=== PATIENT | male | born 1965 | race Caucasian/White ===

== ENCOUNTER 2025-04-04 11:26 | Inpatient (IN) | payer MEDICAID, OTHER ==
[~2025-04-04] VITALS: Ht 175.3 cm; Wt 84.8 kg
[2025-04-04 13:43] LABS: PLATELET COUNT (AUTO) 410 K/uL (150-450); RED BLOOD CELL COUNT(AUTO) 5.37 MIL/uL (4.50-5.90); RED CELL DISTRIBUTION WIDTH 13.8 % (11.5-14.5); WHITE BLOOD COUNT (AUTO) 7.4 K/uL (4.5-11.0)
[2025-04-04 13:48] LABS: PH,URINE DRUG SCREEN 7.0 (5.0-8.0)
[2025-04-04 13:53] LABS: CALCIUM, TOTAL 9.4 mg/dL (8.8-10.5); CREATININE 1.07 mg/dL (0.60-1.30); GLOMERULAR FILTR. RATE CALC > 60 mL/min (>60); GLUCOSE,RANDOM 137 mg/dL (70-110); SODIUM SERUM 136 mmol/L (136-145); UREA NITROGEN, BLOOD 11 mg/dL (7-18)
[2025-04-04 13:54] LABS: ALCOHOL, URINE DRUG SCREEN NEGATIVE (NEGATIVE); AMPHET/METH SCREEN,URINE NEGATIVE (NEGATIVE); BARBITURATE SCREEN, URINE NEGATIVE (NEGATIVE); CANNABINOID SCREEN,URINE NEGATIVE (NEGATIVE); COCAINE SCREEN,URINE NEGATIVE (NEGATIVE); METHADONE SCREEN, URINE NEGATIVE (NEGATIVE)
[2025-04-04 14:29] LABS: COVID AG,FIA SOURCE NASAL SWAB
[2025-04-04 15:14] LABS: SARS-COV2 (COVID) ANTIGEN,FIA Negative (Negative)
[2025-04-04] MEDS ORDERED: ZOLPIDEM TARTRATE 10 MG TABLET PO PRN (16:30)
[2025-04-04 23:55] VITALS: O2SAT 96
[2025-04-05 04:33] VITALS: BP 108/80; PULSE 123; RESP 17; TEMP 97.3; O2SAT 96
[2025-04-05 06:55] LABS: GLUCOMETER DEV NAME(LOC) BV3S.2; GLUCOSE,POINT OF CARE 160 MG/DL (70-110)
[2025-04-05] MEDS ORDERED: PETROLATUM,WHITE 28 GM JELLY TP PRN (07:00)
[2025-04-05] MEDS: POTASSIUM CHLORIDE 20 MEQ ER TABLET PO ONE (07:00)
[2025-04-05] MEDS ORDERED: ONDANSETRON 4 MG TABLET PO PRN (07:00)
[2025-04-05] MEDS ORDERED: MAGNESIUM HYDROXIDE SUSPENSION 30 ML UDCUP PO PRN (07:00)
[2025-04-05] MEDS ORDERED: IBUPROFEN 600 MG TABLET PO PRN (07:00)
[2025-04-05] MEDS ORDERED: ALBUTEROL SULFATE HFA 90 MCG/PUFF 8 GM INHALER IH PRN (07:00)
[2025-04-05] MEDS ORDERED: OMEPRAZOLE 20 MG CAPSULE PO PRN (07:00)
[2025-04-05] MEDS ORDERED: BENZOCAINE/MENTHOL [CEPACOL] LOZENGE PO PRN (07:00)
[2025-04-05] MEDS ORDERED: GLUCAGON,HUMAN RECOMBINANT 1 MG VIAL IM PRN (07:00)
[2025-04-05] MEDS ORDERED: BACITRACIN 28 GM OINTMENT TP PRN (07:00)
[2025-04-05] MEDS ORDERED: DOCUSATE SODIUM 100 MG CAPSULE PO PRN (07:00)
[2025-04-05] MEDS ORDERED: LOPERAMIDE HCL 2 MG CAPSULE PO PRN (07:00)
[2025-04-05] MEDS ORDERED: ACETAMINOPHEN 325 MG TABLET PO PRN (07:00)
[2025-04-05] MEDS ORDERED: INSULIN LISPRO 100 UNITS/ML SQ PRN (07:00)
[2025-04-05] MEDS ORDERED: MAG HYDROX/ALUMINUM HYD/SIMETH ES 30 ML SUSPENSION UDCUP PO PRN (07:00)
[2025-04-05 08:45] VITALS: BP 101/75; PULSE 100; RESP 16; TEMP 97.3; O2SAT 98
[2025-04-05] MEDS: METOPROLOL TARTRATE 25 MG TABLET PO SCH (09:00)
[2025-04-05 09:56] LABS: CHOL/HDL RATIO 1.9 (4.2-7.3); LDL CHOL (CALC.) 42.0 mg/dL (0-130)
[2025-04-05] MEDS ORDERED: LURASIDONE HCL 40 MG TABLET PO PRN (15:00)
[2025-04-05] MEDS: TRIHEXYPHENIDYL HCL 5 MG TABLET PO SCH (18:30)
[2025-04-05 20:30] VITALS: RESP 16
[2025-04-06] MEDS: LURASIDONE HCL 40 MG TABLET PO SCH (06:34)
[2025-04-06 08:21] VITALS: BP 114/76; PULSE 79; RESP 17; TEMP 98; O2SAT 98
[2025-04-06 20:43] VITALS: BP 148/83; PULSE 95; RESP 19; TEMP 97.2; O2SAT 97
[2025-04-07 09:13] VITALS: BP 133/93; PULSE 88; RESP 18; TEMP 97.3; O2SAT 98
[2025-04-07] MEDS ORDERED: POTASSIUM CHLORIDE 10% 40 MEQ/30 ML LIQUID UDCUP PO ONE (10:45)
[2025-04-07 20:26] VITALS: BP 132/83; PULSE 68; RESP 18; TEMP 98; O2SAT 98
[2025-04-08 08:44] VITALS: BP 151/81; PULSE 68; RESP 18; TEMP 97.4; O2SAT 99
[2025-04-08] MEDS ORDERED: OLANZapine 5 MG RAPDIS TABLET PO PRN (14:45)
[2025-04-08 16:30] VITALS: BP 121/93; PULSE 66; RESP 18; TEMP 97.3; O2SAT 100
[2025-04-08 20:22] VITALS: BP 121/93; PULSE 66; RESP 18; TEMP 97.3; O2SAT 100
[2025-04-08] MEDS: OLANZapine 5 MG RAPDIS TABLET PO SCH (21:00)
[2025-04-09 08:58] VITALS: BP 137/85; PULSE 87; RESP 17; TEMP 97.9; O2SAT 98
[2025-04-09] MEDS: DIVALPROEX SODIUM 500 MG ER TABLET PO SCH (17:00)
[2025-04-09 20:44] VITALS: RESP 17
[2025-04-09] MEDS: OLANZapine 10 MG RAPDIS TABLET PO SCH (20:52)
[2025-04-09 22:40] LABS: GLUCOMETER DEV NAME(LOC) BV2S.; GLUCOSE,POINT OF CARE 109 MG/DL (70-110)
[2025-04-09 22:40] LABS: GLUCOMETER DEV NAME(LOC) BV2S.; GLUCOSE,POINT OF CARE 79 MG/DL (70-110)
[2025-04-09 22:40] LABS: GLUCOMETER DEV NAME(LOC) BV2S.; GLUCOSE,POINT OF CARE 116 MG/DL (70-110)
[2025-04-09 22:40] LABS: GLUCOMETER DEV NAME(LOC) BV2S.; GLUCOSE,POINT OF CARE 105 MG/DL (70-110)
[2025-04-10 09:31] VITALS: RESP 18
[2025-04-10] MEDS ORDERED: PALIPERIDONE PALMITATE 234 MG/1.5 ML SYRINGE IM ONE (16:00)
[2025-04-10 20:16] VITALS: RESP 16
[2025-04-11 06:26] LABS: GLUCOMETER DEV NAME(LOC) BV2S.; GLUCOSE,POINT OF CARE 84 MG/DL (70-110)
[2025-04-11 06:26] LABS: GLUCOMETER DEV NAME(LOC) BV2S.; GLUCOSE,POINT OF CARE 62 MG/DL (70-110)
[2025-04-11 06:55] LABS: GLUCOMETER DEV NAME(LOC) BV2S.; GLUCOSE,POINT OF CARE 83 MG/DL (70-110)
[2025-04-11 08:19] VITALS: BP 148/88; PULSE 68; RESP 18; TEMP 98.4; O2SAT 100
[2025-04-11] MEDS ORDERED: FLUP25VI5 IM (16:21)
[2025-04-11] MEDS ORDERED: OLAN10TA26 PO (16:21)
[2025-04-11] MEDS ORDERED: TRIH5TAB3 PO (16:21)
[2025-04-11] MEDS ORDERED: DIVA-153 PO (16:21)
[2025-04-11 20:27] VITALS: BP 106/90; PULSE 86; RESP 18; TEMP 97.7; O2SAT 96
[2025-04-12 08:17] VITALS: BP 148/91; PULSE 69; RESP 18; TEMP 97.2; O2SAT 100
[2025-04-12 16:27] VITALS: BP 133/81; PULSE 77; RESP 18; TEMP 97.8; O2SAT 99
[2025-04-12 20:28] VITALS: RESP 18
[2025-04-12 22:11] LABS: GLUCOMETER DEV NAME(LOC) BV2S.; GLUCOSE,POINT OF CARE 100 MG/DL (70-110)
[2025-04-12 22:11] LABS: GLUCOMETER DEV NAME(LOC) BV2S.; GLUCOSE,POINT OF CARE 93 MG/DL (70-110)
[2025-04-12 22:11] LABS: GLUCOMETER DEV NAME(LOC) BV2S.; GLUCOSE,POINT OF CARE 71 MG/DL (70-110)
[2025-04-12 22:11] LABS: GLUCOMETER DEV NAME(LOC) BV2S.; GLUCOSE,POINT OF CARE 107 MG/DL (70-110)
[2025-04-12 22:11] LABS: GLUCOMETER DEV NAME(LOC) BV2S.; GLUCOSE,POINT OF CARE 99 MG/DL (70-110)
[2025-04-13 06:51] LABS: GLUCOMETER DEV NAME(LOC) BV2S.; GLUCOSE,POINT OF CARE 99 MG/DL (70-110)
[2025-04-13 18:43] VITALS: BP 114/70; PULSE 88; RESP 14; TEMP 97.8; O2SAT 97
[2025-04-13 20:13] VITALS: RESP 16
[2025-04-14 08:08] VITALS: BP 137/86; PULSE 88; RESP 18; TEMP 97.7; O2SAT 98
[2025-04-14] MEDS ORDERED: PALIPERIDONE PALMITATE 156 MG/ML SYRINGE IM ONE (09:00)
[2025-04-14 20:25] VITALS: BP 146/88; PULSE 66; RESP 16; TEMP 98.2; O2SAT 98
[2025-04-14 23:40] LABS: GLUCOMETER DEV NAME(LOC) BV2S.; GLUCOSE,POINT OF CARE 78 MG/DL (70-110)
[2025-04-14 23:40] LABS: GLUCOMETER DEV NAME(LOC) BV2S.; GLUCOSE,POINT OF CARE 104 MG/DL (70-110)
[2025-04-15 20:47] VITALS: BP 113/61; PULSE 78; RESP 17; TEMP 97.9; O2SAT 98
[2025-04-16] MEDS ORDERED: METO25 PO (08:23)
[2025-04-16] MEDS ORDERED: TRIH5TAB3 PO (10:18)
[2025-04-16] MEDS ORDERED: OLAN10TA26 PO (10:18)
[2025-04-16] MEDS ORDERED: DIVA-153 PO (10:18)
[2025-04-16] MEDS ORDERED: FLUP25VI5 IM (10:18)
[2025-04-16 15:21] VITALS: RESP 16
== END 2025-04-16 13:05 | DRG 761 ==
LOC: EMS 11:26 → B3A 21:57
PROVIDERS: ADMIT Psychiatry & Neurology Psychiatry; ATTEND Psychiatry & Neurology Psychiatry
PROC: GZHZZZZ Group Psychotherapy (ICD-10-PCS; principal; 2025-04-05)
PROC: GZ58ZZZ Individual Psychotherapy, Cognitive-Behavioral (ICD-10-PCS; 2025-04-05)
PROC: GZ56ZZZ Individual Psychotherapy, Supportive (ICD-10-PCS; 2025-04-08)
DX: F25.9 Schizoaffective disorder, unspecified (principal); D64.9 Anemia, unspecified; E11.9 Type 2 diabetes mellitus without complications; F17.200 Nicotine dependence, unspecified, uncomplicated; F32.A Depression, unspecified; Z20.822 Contact with and (suspected) exposure to COVID-19; F41.9 Anxiety disorder, unspecified; G47.00 Insomnia, unspecified; R41.89 Other symptoms and signs involving cognitive functions and awareness; I10 Essential (primary) hypertension; K21.9 Gastro-esophageal reflux disease without esophagitis; J44.9 Chronic obstructive pulmonary disease, unspecified; Z60.8 Other problems related to social environment; Z55.9 Problems related to education and literacy, unspecified; Z59.9 Problem related to housing and economic circumstances, unspecified; Z63.9 Problem related to primary support group, unspecified; Z65.3 Problems related to other legal circumstances; Z88.0 Allergy status to penicillin; Z91.148 Patient's other noncompliance with medication regimen for other reason
CPT/HCPCS: 80048; 80061; 80307; 82962; 83036; 85025; 87081; 99285; G0480; G0481